=== PATIENT | female | born 1930 | race Caucasian/White ===

== ENCOUNTER 2017-06-29 02:00 | Inpatient (IN) | payer BC, OTHER ==
[2017-06-29] VITALS (7 sets, daily range): BP systolic 117–135; BP diastolic 54–102
[~2017-06-29] VITALS: Ht 160 cm; Wt 50.8 kg
--- NOTE | 2017-06-29 02:30 | Emergency Room Report ---
History of Present Illness General Chief Complaint: Diarrhea Source: Patient, EMS Present Illness HPI Is an 86-year-old female with a history of hypertension. She presents with chief complaint of diarrhea. Onset around 3 PM this afternoon. She had profuse diarrhea with multiple episode. Said that she a total of 13 so far. Diarrhea is watery. Cramping pain. No nausea no vomiting. She took some Gatorade and magnesium citrate. The magnesium citrate made it worse. No other complaint. [place] weak and dehydrated. Able to eat. Allergies: Uncoded Allergies: SULFA (Allergy, Unknown, 06/29/17) Patient History Past Medical History: see triage record, old chart reviewed, HTN Past Surgical History: other Pertinent Family History: none Social History: Denies: smoking Last Menstrual Period: NA Now: No Immunizations: other Reviewed Nursing Documentation: PMH: Agreed, PSxH: Agreed Nursing Documentation-PMH Hx Hypertension: Yes - stent Review of Systems Eye: Denies: eye pain, blurred vision ENT: Denies: ear pain, nose congestion, throat swelling Respiratory: Denies: cough, shortness of breath Cardiovascular: Denies: chest pain, palpitations Gastrointestinal: Reports: diarrhea, Denies: abdominal pain, nausea, vomiting Musculoskeletal: Denies: back pain, joint pain Skin: Denies: rash Neurological: Denies: headache, numbness Endocrine: Denies: increased thirst, increased urine Hematologic/Lymphatic: Denies: easy bruising All Other Systems: negative except mentioned in HPI Physical Exam Vital Signs Date Time Temp Pulse Resp B/P (MAP) Pulse Ox O2 Delivery O2 Flow Rate FiO2 06/29/17 01:45 98.0 71 18 176/74 98 Room Air 98.1 vitals with high blood pressure Sp02 EP Interpretation: reviewed, normal General Appearance: well appearing, no apparent distress, alert Head: normocephalic, atraumatic Eyes: bilateral eye PERRL, bilateral eye EOMI ENT: hearing grossly normal, normal pharynx Neck: full range of motion, supple, no meningismus Respiratory: chest non-tender, lungs clear, normal breath sounds Cardiovascular #1: regular rate, rhythm, no murmur Gastrointestinal: normal bowel sounds, non tender, no mass, no organomegaly, no bruit, non-distended Musculoskeletal: back normal, gait/station normal, normal range of motion Psychiatric: mood/affect normal Skin: warm/dry Medical Decision Making Diagnostic Impression: Primary Impression: Hyponatremia Additional Impression: Diarrhea Qualified Codes: R19.7 - Diarrhea, unspecified ER Course Patient presents with profuse diarrhea and has hyponatremia. This probably secondary to diarrhea. No diarrhea here. Patient received fluid here. I will try to transfer the patient to [facility] because she has [facility] insurance. If unable to transfer, will admit here under service of Dr. Sahni. Dr. Salinas is covering. [place] [facility] [place] admission here. Lab Results Impression labs with hyponatremia Last Vital Signs Date Time Temp Pulse Resp B/P (MAP) Pulse Ox O2 Delivery O2 Flow Rate FiO2 06/29/17 02:06 98.1 82 16 135/58 99 Room Air 98.1 Status: improved Disposition: ADMITTED INPATIENT Condition: Serious Scripts Unable to Obtain Active Prescriptions or Reported Meds JEANETTE ROSS M.D. Jun 29, 2017 02:30
[2017-06-29 02:44] LABS: APPEARANCE,URINE CLEAR; BILIRUBIN, URINE NEGATIVE (NEGATIVE); COLOR,URINE PALE YELLOW; GLUCOSE, URINE (UA) 3+ (NEGATIVE); KETONES,URINE 1+ (NEGATIVE); LEUKOCYTE ESTERASE ,URINE NEGATIVE (NEGATIVE); NITRITE,URINE NEGATIVE (NEGATIVE); PH,URINE 7 (4.5-8.0); PROTEIN,URINE NEGATIVE (NEGATIVE); UROBILINOGEN,URINE NORMAL MG/DL (0.0-1.0)
[2017-06-29 02:44] LABS: BASOPHILS % (AUTO) 1.7 % (0.0-2.0); EOSINOPHILS % (AUTO) 0.3 % (0.0-3.0); LYMPHOCYTES % (AUTO) 7.5 % (20.0-45.0); MEAN CORPUSCULAR VOLUME 84 FL (80-99); MONOCYTES % (AUTO) 7.3 % (1.0-10.0); NEUTROPHILS % (AUTO) 83.2 % (45.0-75.0); PLATELET COUNT 252 K/UL (150-450); RED BLOOD COUNT 4.04 M/UL (4.20-5.40); RED CELL DISTRIBUTION WIDTH 11.2 % (11.6-14.8); WHITE BLOOD COUNT 5.9 K/UL (4.8-10.8)
[2017-06-29 02:59] LABS: ALANINE AMINOTRANSFERASE 31 U/L (12-78); ALBUMIN 4.2 G/DL (3.4-5.0); ALBUMIN/GLOBULIN RATIO 1.2 (1.0-2.7); ALKALINE PHOSPHATASE 70 U/L (46-116); ANION GAP 8 mmol/L (5-15); ASPARTATE AMINO TRANSFERASE 35 U/L (15-37); BILIRUBIN,TOTAL 0.4 MG/DL (0.2-1.0); BLOOD UREA NITROGEN 17 mg/dL (7-18); CALCIUM 8.6 MG/DL (8.5-10.1); CARBON DIOXIDE 27 MMOL/L (21-32); CHLORIDE 82 MMOL/L (98-107); CREATININE 0.7 MG/DL (0.55-1.30); POTASSIUM 3.8 MMOL/L (3.5-5.1)
[2017-06-29 03:00] LABS: SODIUM 117 MMOL/L (136-145)
--- NOTE | 2017-06-29 10:13 | History & Physical ---
History and Physical History & Physicial #[id number] diarrhea hyponatremia generalized weakness confusion hx of psych PIERO JACK Jun 29, 2017 10:13
[2017-06-29] MEDS ORDERED: COZAAR50 MG ORAL (10:50)
[2017-06-29] MEDS ORDERED: PRAVASTATIN SOD20 M1 ORAL (10:50)
[2017-06-29] MEDS ORDERED: MIRALAX17 G2 ORAL (10:50)
[2017-06-29] MEDS ORDERED: NORVASC10 MG ORAL (10:50)
[2017-06-29 12:11] LABS: BASOPHILS % (AUTO) 1.5 % (0.0-2.0); EOSINOPHILS % (AUTO) 1.3 % (0.0-3.0); HEMOGLOBIN 11.7 G/DL (12.0-16.0); LYMPHOCYTES % (AUTO) 20.5 % (20.0-45.0); MEAN CORPUSCULAR VOLUME 85 FL (80-99); MONOCYTES % (AUTO) 16.2 % (1.0-10.0); NEUTROPHILS % (AUTO) 60.6 % (45.0-75.0); PLATELET COUNT 245 K/UL (150-450); RED BLOOD COUNT 3.99 M/UL (4.20-5.40); RED CELL DISTRIBUTION WIDTH 11.4 % (11.6-14.8); WHITE BLOOD COUNT 4.6 K/UL (4.8-10.8)
[2017-06-29 12:21] LABS: ANION GAP 7 mmol/L (5-15); BLOOD UREA NITROGEN 9 mg/dL (7-18); CALCIUM 8.5 MG/DL (8.5-10.1); CARBON DIOXIDE 25 MMOL/L (21-32); CHLORIDE 95 MMOL/L (98-107); CREATININE 0.6 MG/DL (0.55-1.30); POTASSIUM 3.8 MMOL/L (3.5-5.1); SODIUM 127 MMOL/L (136-145)
--- NOTE | 2017-06-29 15:15 | History and Physical Report ---
DATE OF ADMISSION: 06/29/2017 REASON FOR ADMISSION: Diarrhea. HISTORY OF PRESENT ILLNESS: This is an 86-year-old female, who lives with a roommate and does not have any family, who assists her and is a very poor historian, states that she was very weak and dizzy. She had multiple episodes of diarrhea. She was taking magnesium citrate at home. She felt she was constipated. Per the ER report, she had 13 episodes of diarrhea yesterday, was weak without dizziness. No signs of syncope. She was brought in by medics, was found to be hypotensive. She was taking NPO without nausea or vomiting. PAST MEDICAL HISTORY: Hypertension. PAST SURGICAL HISTORY: Unavailable. PRE-HOSPITAL MEDICATIONS: The patient does not recall her medications. Has no way to get her medications from home. Nobody to bring her medications from home and pharmacy has been requested for medication reconciliation. ALLERGIES: Sulfa. SOCIAL HISTORY: Unavailable. FAMILY HISTORY: Unavailable. REVIEW OF SYSTEMS: Unreliable. The patient is a very poor historian. There is some report that she did have a cardiac stent, although she denies to me that she takes any anticoagulants or anti-platelet medications. PHYSICAL EXAMINATION: GENERAL: At the time of my exam, she is arousable, communicates, but is confused and a very poor historian. VITAL SIGNS: She is afebrile. Her pulse is 59, respirations 20, and blood pressure 129/58. HEENT: She is normocephalic and atraumatic. Oropharynx is dry. Nasal mucosa is dry. LUNGS: Decreased at the bases. HEART: Regular in rate. ABDOMEN: Soft and nontender. EXTREMITIES: Without edema. Does move all extremities spontaneously. SKIN: No skin rashes, wounds, or lesions are present. LABORATORY AND DIAGNOSTIC DATA: Her white count 5.9, hemoglobin is 12, and platelets are 252,000. Her sodium is 117, potassium 3.8, chloride 82, bicarbonate 27, glucose was 148, BUN 17, and creatinine 0.7. LFTs were normal. Lipase was 307. Her urinalysis was positive for glucose, positive for ketones, and positive. ASSESSMENT: 1. Diffuse diarrhea, questionable iatrogenic. The patient taking magnesium citrate versus infectious etiology. 2. Hyponatremia. 3. Questionable underlying diabetes with elevated glucose and glucosuria. 4. Hypotension. PLAN: Plan for the patient, she is currently on normal saline at 100 mL an hour. I have asked pharmacy to reconcile her medications. No reports of diarrhea since admission. Replace lytes as necessary. DVT prophylaxis, aspiration precautions, and we will await pharmacy's medication list for her home medications. Nargis Salinas D.O. DR: [place] JOB#: [id number] CC:
[2017-06-29] MEDS: Losartan 50mg tab ORAL SCH (20:16)
[2017-06-30] VITALS: BP 120/46
[2017-06-30 04:00] VITALS: BP 112/64
[2017-06-30 05:57] LABS: BASOPHILS % (AUTO) 2.6 % (0.0-2.0); HEMATOCRIT 34.8 % (37.0-47.0); HEMOGLOBIN 12.1 G/DL (12.0-16.0); LYMPHOCYTES % (AUTO) 34.4 % (20.0-45.0); MEAN CORPUSCULAR VOLUME 87 FL (80-99); PLATELET COUNT 233 K/UL (150-450); RED BLOOD COUNT 3.99 M/UL (4.20-5.40); RED CELL DISTRIBUTION WIDTH 12.4 % (11.6-14.8); WHITE BLOOD COUNT 4.1 K/UL (4.8-10.8)
[2017-06-30 06:21] LABS: ANION GAP 6 mmol/L (5-15); BLOOD UREA NITROGEN 6 mg/dL (7-18); CALCIUM 8.6 MG/DL (8.5-10.1); CARBON DIOXIDE 27 MMOL/L (21-32); CHLORIDE 104 MMOL/L (98-107); CREATININE 0.6 MG/DL (0.55-1.30); POTASSIUM 3.6 MMOL/L (3.5-5.1); SODIUM 137 MMOL/L (136-145)
[2017-06-30 08:00] VITALS: BP 123/53
[2017-06-30] MEDS: Losartan 50mg tab ORAL SCH ×2 (08:38→20:43)
[2017-06-30 12:00] VITALS: BP 125/66
--- NOTE | 2017-06-30 19:44 | Pulmonology Progress Note ---
Assessment/Plan Assessment/Plan 1. Diffuse diarrhea, questionable iatrogenic. The patient taking magnesium citrate versus infectious etiology. 2. Hyponatremia. 3. Questionable underlying diabetes with elevated glucose and glucosuria. 4. Hypotension. all resolved toelrating po home meds resumed bp stable dc in am Subjective Constitutional: Reports: no symptoms HEENT: Repors: no symptoms Respiratory: Reports: no symptoms Cardiovascular: Reports: no symptoms Gastrointestinal/Abdominal: Reports: no symptoms Allergies: Uncoded Allergies: SULFA (Allergy, Unknown, 06/29/17) Subjective awake alert no distres toleratign po no cp nv or bleeding no diarrhea Objective Last 24 Hour Vital Signs Date Time Temp Pulse Resp B/P (MAP) Pulse Ox O2 Delivery O2 Flow Rate FiO2 06/30/17 12:00 98.1 64 20 125/66 99 Room Air 06/30/17 08:38 64 123/53 06/30/17 08:38 123/53 06/30/17 08:00 98.8 64 20 123/53 96 06/30/17 04:00 67 20 112/64 98 06/30/17 00:00 97.3 63 20 120/46 99 06/29/17 20:16 123/102 06/29/17 20:00 98.1 66 20 123/102 97 Intake and Output 06/29/17 06/30/17 19:00 07:00 Intake Total 1980 ml 1200 ml Balance 1980 ml 1200 ml Intake Oral 800 ml IV Total 1180 ml 1200 ml # Voids 4 2 General Appearance: WD/WN Respiratory/Chest: lungs clear, normal breath sounds Cardiovascular: normal rate, regular rhythm Abdomen: soft, non tender, no organomegaly Extremities: no clubbing Laboratory Tests 06/30/17 04:25: White Blood Count 4.1L, Red Blood Count 3.99L, Hemoglobin 12.1, Hematocrit 34.8L , Mean Corpuscular Volume 87, Mean Corpuscular Hemoglobin 30.3, Mean Corpuscular Hemoglobin Concent 34.7, Red Cell Distribution Width 12.4, Platelet Count 233, Mean Platelet Volume 8.3, Neutrophils (%) (Auto) 46.0, Lymphocytes (% ) (Auto) 34.4, Monocytes (%) (Auto) 15.0H, Eosinophils (%) (Auto) 2.0, Basophils (%) (Auto) 2.6H, Sodium Level 137#, Potassium Level 3.6, Chloride Level 104, Carbon Dioxide Level 27, Anion Gap 6, Blood Urea Nitrogen 6L, Creatinine 0.6, Estimat Glomerular Filtration Rate , Glucose Level 76, Calcium Level 8.6, Magnesium Level 2.0, Troponin I 0.000 Current Medications Medications (Trade) Dose Ordered Sig/Bj Route PRN Reason Start Time Stop Time Status Last Admin Dose Admin Amlodipine Besylate (Norvasc) 10 mg DAILY ORAL 06/30/17 09:00 07/30/17 08:59 06/30/17 08:38 Losartan Potassium (Cozaar) 50 mg EVERY 12 HOURS ORAL 06/29/17 21:00 07/29/17 20:59 06/30/17 08:38 Pravastatin Sodium (Pravachol) 40 mg BEDTIME ORAL 06/29/17 21:00 07/29/17 20:59 06/29/17 20:16 Sodium Chloride 1,000 ml @ 100 mls/hr Q10H IV 06/29/17 06:00 07/29/17 05:59 06/30/17 12:12 PIREO JACK DO Jun 30, 2017 19:44
[2017-06-30 20:00] VITALS: BP 132/97
[2017-07-01] VITALS: BP 132/59
[2017-07-01 04:00] VITALS: BP 140/59
[2017-07-01 08:00] VITALS: BP 169/70
[2017-07-01 08:23] VITALS: BP 169/70
[2017-07-01] MEDS: Losartan 50mg tab ORAL SCH (08:23)
--- NOTE | 2017-07-01 08:33 | Pulmonology Progress Note ---
Assessment/Plan Assessment/Plan 1. Diffuse diarrhea, questionable iatrogenic. The patient taking magnesium citrate versus infectious etiology. 2. Hyponatremia. 3. Questionable underlying diabetes with elevated glucose and glucosuria. 4. Hypotension. all resolved toelrating po home meds resumed bp stable dc home Subjective Interval Events: well today Constitutional: Reports: no symptoms HEENT: Repors: no symptoms Respiratory: Reports: no symptoms Cardiovascular: Reports: no symptoms Gastrointestinal/Abdominal: Reports: no symptoms Allergies: Uncoded Allergies: SULFA (Allergy, Unknown, 06/29/17) Objective Last 24 Hour Vital Signs Date Time Temp Pulse Resp B/P (MAP) Pulse Ox O2 Delivery O2 Flow Rate FiO2 07/01/17 08:23 63 169/70 07/01/17 08:23 169/70 07/01/17 08:00 97.3 63 20 169/70 100 07/01/17 04:00 97.5 62 18 140/59 100 07/01/17 00:00 97.6 63 21 132/59 97 06/30/17 20:43 132/97 06/30/17 20:00 97.6 72 20 132/97 99 06/30/17 12:00 98.1 64 20 125/66 99 Room Air 06/30/17 08:38 64 123/53 06/30/17 08:38 123/53 Intake and Output 06/30/17 07/01/17 19:00 07:00 Intake Total 1820 ml 1560 ml Balance 1820 ml 1560 ml Intake Oral 720 ml 360 ml IV Total 1100 ml 1200 ml # Voids 4 7 General Appearance: WD/WN HEENT: normocephalic Respiratory/Chest: chest wall non-tender, lungs clear Cardiovascular: normal peripheral pulses, normal rate Abdomen: normal bowel sounds Current Medications Medications (Trade) Dose Ordered Sig/Bj Route PRN Reason Start Time Stop Time Status Last Admin Dose Admin Amlodipine Besylate (Norvasc) 10 mg DAILY ORAL 06/30/17 09:00 07/30/17 08:59 07/01/17 08:23 Losartan Potassium (Cozaar) 50 mg EVERY 12 HOURS ORAL 06/29/17 21:00 07/29/17 20:59 07/01/17 08:23 Pravastatin Sodium (Pravachol) 40 mg BEDTIME ORAL 06/29/17 21:00 07/29/17 20:59 06/30/17 20:43 Sodium Chloride 1,000 ml @ 100 mls/hr Q10H IV 06/29/17 06:00 07/29/17 05:59 06/30/17 21:43 Eder Snow MD Jul 01, 2017 08:33
--- NOTE | 2017-07-04 08:55 | Discharge Summary ---
Discharge Summary Hospital Course Date of Admission Jun 29, 2017 at 04:30 Date of Discharge Jul 01, 2017 at 10:15 Admitting Diagnosis hyponatremia HPI Simin Casillas is a 86 year old female who was admitted on Jun 29, 2017 at 04:30 for Hyponatrremia Hospital Course dc summary # [id number] Discharge Medications Continued Medications: Amlodipine Besylate (Norvasc) 10 Mg Tablet 10 MG ORAL DAILY, TAB Losartan Potassium* (Cozaar*) 50 Mg Tablet 50 MG ORAL TWICE A DAY, TAB Pravastatin Sod* (Pravastatin Sod*) 20 Mg Tablet 40 MG ORAL BEDTIME, TAB Discontinued Medications: Polyethylene Glycol 3350* (Miralax*) 17 Gm Powd.pack 17 GM ORAL DAILY PRN for Diarrhea, PACKET Discharge Condition Upon Discharge: stable Discharge Disposition Patient was discharged to Home (01) Discharge Diagnoses: Discharge Instructions Discharge Instructions Special Instructions I have been assigned to complete a D/C Summary on this account. I was not involved in the patient management Roxana Andre NP ([place]) Jul 04, 2017 08:55
--- NOTE | 2017-07-05 00:02 | Discharge Summary 2 SIG ---
DATE OF ADMISSION: 06/29/2017 DATE OF DISCHARGE: 07/01/2017 REASON FOR ADMISSION: 86-year-old female, who lives with the roommate and does not have any family to assist her, presented with generalized weakness and dizziness. The patient reported multiple episodes of watery diarrhea. According to the patient, she was taking magnesium citrate at home after she felt that she was constipated. Per emergency room report, the patient had 13 episodes of diarrhea yesterday. She was weak but no signs of syncope. She was brought in by paramedics and found to be hypertensive. No nausea. No vomiting. Upon evaluation in the emergency room, elevated blood pressure -176/74. No fever. Laboratory workup revealed severe hyponatremia, sodium -117. The patient was admitted for further management with diagnoses of diarrhea, possible iatrogenic (secondary to magnesium citrate) versus infectious; acute hyponatremia; hypertension. HOSPITAL COURSE: The patient was admitted. The patient was started on the IV fluids. Renal parameters and electrolytes were closely monitored. Electrolytes corrected as needed. Nephrotoxics were avoided. IV fluids provided with normal saline. Next day, sodium up to 127 and on the day of discharge up to normal -137. Troponin was negative. Urinalysis was negative. No leukocytosis. Stable hemoglobin and hematocrit. Blood pressure was managed with the current medication regimen and remained stable with Cozaar. Statin was continued. The patient was stable for discharge home. Generalized weakness likely was brought by dehydration secondary to profuse iatrogenic diarrhea. Hyponatremia was likely related to dehydration and use of laxative. Diarrhea stooped. Patient clinically improved. Patient was stake for discharge. FINAL DIAGNOSES: 1. Diarrhea, probably iatrogenic (was taking regularly magnesium citrate). 2. Acute hyponatremia, resolved. 3. Hypertension, stable. DISCHARGE MEDICATIONS: See medication reconciliation list. DISCHARGE INSTRUCTIONS: The patient was discharged home. Follow up with the primary care provider next week. Sterling Sahni M.D. I have been assigned to dictate discharge summary on this account and I was not involved in the patient's management. Roxana HaganRose burleson DR: PATTI JOB#: [id number] CC: PRICE
== END 2017-07-01 10:15 | disposition home or self-care (01) | DRG 641 ==
LOC: EDBD 02:00 → EMR 04:05 → 4E 04:30 → EDBEDREQ 05:08
DX: E87.1 Hypo-osmolality and hyponatremia (principal); I10 Essential (primary) hypertension; R19.7 Diarrhea, unspecified; Z88.2 Allergy status to sulfonamides
CPT/HCPCS: 36415; 80048; 80053; 81003; 83690; 83735; 84484; 85025; 99285